=== PATIENT | female | born 1955 | race Caucasian/White ===

== ENCOUNTER 2021-12-30 12:08 | Day surgery (SDC) | payer MEDICARE ==
[~2021-12-30] VITALS: Ht 170.2 cm; Wt 51.0 kg
[2021-12-30 12:30] VITALS: BP 102/59
[2021-12-30] MEDS ORDERED: ONDA4TAB12 PO (12:35)
[2021-12-30] MEDS ORDERED: DILT-35 PO (12:35)
[2021-12-30] MEDS ORDERED: LIDOcaine 1%/PF 5ML 10 MG/ML VIAL IJ ONE (12:45)
[2021-12-30 13:15] VITALS: BP 81/60
[2021-12-30 13:30] VITALS: BP 92/54
== END 2021-12-30 14:00 | disposition home or self-care (01) ==
LOC: SSTAY O 12:08
PROVIDERS: ATTEND Radiology Vascular & Interventional Radiology
DX: R22.1 Localized swelling, mass and lump, neck (principal); C83.31 Diffuse large B-cell lymphoma, lymph nodes of head, face, and neck; Z79.899 Other long term (current) drug therapy; Z98.890 Other specified postprocedural states
CPT/HCPCS: 38505; 76942; 88184; 88185; J3490; 20206